=== PATIENT | male | born 1970 | race African-American/Black ===

== ENCOUNTER 2018-10-02 15:12 | Emergency (ER) | payer OTHER ==
[~2018-10-02] VITALS: Ht 172.7 cm; Wt 86.0 kg
[2018-10-02 15:23] VITALS: BP 133/85
[2018-10-02] MEDS ORDERED: SODIUM CHLORIDE 0.9% 1,000 ML IV ONE (16:12)
[2018-10-02 17:17] LABS: BASOPHILS % 1.1 % (0.0-2.0); EOSINOPHILS % 0.1 % (0.0-5.0); HEMATOCRIT. 43.6 % (42.0-52.0); HEMOGLOBIN. 14.8 g/dL (14.0-18.0); LYMPHOCYTES % 15.9 % (20.0-50.0); MEAN CORPUSCULAR HEMOGLOBIN 31.2 pg (28.0-32.0); MEAN PLATELET VOLUME 6.9 fl (7.4-10.4); MONOCYTES % 6.1 % (2.0-8.0); NEUTROPHILS % 76.8 % (40.0-76.0); PLATELET 279 x1000/uL (130-400); RED BLOOD CELL COUNT 4.74 mill/uL (4.7-6.1); RED CELL DISTRIBUTION WIDTH 13.8 % (11.6-14.6)
[2018-10-02 17:19] LABS: CHLORIDE 102 mEq/L (98-107)
== END 2018-10-02 18:27 | disposition home or self-care (01) ==
LOC: ER 15:12
DX: R53.1 Weakness (principal); I10 Essential (primary) hypertension
CPT/HCPCS: 36415; 71045; 80053; 83880; 84484; 85025; 93005; 96360; 99284; J7030; Z7610